=== PATIENT | male | born 1995 | race Caucasian/White ===

== ENCOUNTER 2024-02-10 20:57 | Emergency (ER) | payer BC, SELFPAY ==
[2024-02-10 21:06] VITALS: BP 108/70
--- NOTE | 2024-02-10 22:30 | ED.MUSCINJ ---
HPI-Injury
General
Chief Complaint: Musculo-Skeletal Complaint
Source: patient
Exam Limitations: none
Time Seen by Provider: 02/10/24 22:20
History of Present Illness-Injury
Is this injury a work related problem?: No
Is pt an associate of [facility]/[place]?: No
Initial Injury comments:
This is a 28 year old male that comes in with c/o right ankle pain. States that he was playing Hockey and he went feet first into the boards. States that he has pain in the ankle and he was unable to bare weight. Denies any LOC.. Denies any fever,
chills, nausea, vomiting, diarrhea, headache, dizziness.
Past History
Past History
ED Past Medical History: None
ED Past Surgical History: None
Social History
Tobacco: Former smoker
Alcohol: Occasional
Personal: Single
Living: with family
Employment: Student
Review of Systems
Review of Systems
All Other Systems: ROS reviewed and negative except as documented in HPI and ROS
Constitutional: Reports no symptoms; Denies fever or chills
EENT: Reports no symptoms
Respiratory: Reports no symptoms
Cardiac: Reports no symptoms
ABD/GI: Reports no symptoms; Denies abdominal pain, nausea, vomiting or diarrhea
: Reports no symptoms
Musculoskeletal: Reports joint pain (Right ankle pain)
Skin: Reports no symptoms
Neurological: Reports no symptoms; Denies dizzy or headache
Psychiatric: Reports no symptoms
Musculoskeletal Injury Exam
Musculoskeletal Injury Exam
Right Medial Ankle:
Pain with Movement?: Mild
Tender to palpation?: Mild
Soft tissue swelling?: Mild
External deformity and angulation?: None
Joint effusion?: None
Contusion?: None
Hematoma-local bleeding into tissue?: None
Strain- Sprain- Tear (Connective tissue injury)?: None
Crepitus with movement?: No
Joint instability?: No
Malalignment/deformity?: No
Range of motion: Limited (Due to pain)
Distal skin color and temperature: normal-warm & good color
Capillary Refill: normal
Normal distal neurovascular exam?: Yes
Phy Exam
General Physical Exam
General Presentation: well appearing and no apparent distress
General age: appears stated age
General Skin: warm and dry
General Habitus: normal
General Mental: alert
General Hydration: appears well hydrated
Eye Exam
Eye Exam: EOMI
Musculoskeletal Exam
Musculoskeletal Exam: other (Limited movement right ankle with planter and dorsal flexion. Tender to palpation medial aspect of right ankle. Slight Swelling noted. )
Skin Exam
Skin Exam: normal color, warm/dry, no rash and no petechia
Psychiatric Exam
Psychiatric Exam: normal mood/affect
Injury Course
Orders/Labs/Results
Orders:
Orders
02/10/24 21:09
Ankle, Right 3 view CR [CR Ankle - Right Min 3 Views *] Urgent
Comment:
Reason For Exam: HIT THE BOARDS FEET FIRST DURING ICE HOCKEY
02/10/24 22:31
Crutches-Treatment ONCE
Ortho Boot Right- Treatment ONCE
Short or tall?: Tall
Ibuprofen [Motrin] 600 mg PO NOW STA
MDM/Problems Addressed
Differential Diagnosis Includes:
Ankle Fracture,
MDM/Problems Addressed:
This is a 28 year old male that comes in with c/o right ankle pain after going feet first into the boards.
Will get X-ray.
Explained to patient that he has a tibial fracture. Will place patient in a cast boat and have him use Crutches. No weight baring until he see's the control specialist. Patient to use Tylenol and Ibuprofen for pain. Rest, ice and elevated. Return
with any concerns.
Chronic conditions affecting care:
NA
Acute Exacerbation and/or Progression of Chronic Illness:
NA
*Radiology
Radiology exam reviewed: radiology read reviewed (Right ankle- Nondisplaced vertical fracture through the posterior distal articular margin of the right tibia. )
*Pulse Oximetry
Patient hypoxic: no
*EKG
Interpreted by ED Provider?: NA
Rate: EKG- N/A
*Sales Development Consultant Interpretation
Rate: Sales Development Consultant- N/A
*Critical Care Note
Total Time (30-74mins, 75-104mins- exclusive of procedures): Not Applicable
ED Attending Note
-
Portions of this chart may have been created with voice recognition software.� Occasional wrong word or��sound alike� substitutions may have occurred due to the inherent limitations of voice recognition software.
Discharge Plan
Departure
Patient Disposition: Home (Routine Discharge)
Date of Disposition: 02/10/24
Time of Disposition: 22:38
Patient with high blood pressure during this ER visit?: No
Condition: Good
Covid-19: Not Applicable
Discharge Problem:
Closed tibia fracture
Instructions: Ankle Fracture ED, How to use crutches, RICE Therapy
Prescriptions:
No Action
cephalexin 500 MG capsule
500 mg PO BID Qty: 20 0RF
Referrals:
Jcarlos Oliva MD [Active] - Follow up in 2-3 days
Activity Restrictions/Additional Instructions:
As discussed, you have a posterior tibial fracture. Please use the cast boat until you are seen by the control specialist. Please call there office tomorrow to make an appointment. You may remove the boat to sleep and elevate your foot on a
pillow. Please no weight baring until seen by the Orthopedic. You may use Tylenol and alternate with Ibuprofen for pain. Rest, ice and elevate. IF YOU HAVE ANY OTHER CONCERNS PLEASE RETURN TO THE EMERGENCY ROOM.
Interventions
Interventions:
*Risk Screen - Suicide Last Done: 02/10/24 21:06
*Neglect/Abuse Screening Last Done: 02/10/24 21:06
Discharge Date and Time
Print Language: [id number]
[2024-02-10 22:59] VITALS: BP 126/87
== END 2024-02-10 23:05 | disposition home or self-care (01) ==
LOC: EMR 20:57
PROVIDERS: EMERGENCY PHYSICIAN Emergency Medicine
DX: S82.201A Unspecified fracture of shaft of right tibia, initial encounter for closed fracture (principal); X58.XXXA Exposure to other specified factors, initial encounter; Y93.22 Activity, ice hockey; Z87.891 Personal history of nicotine dependence
CPT/HCPCS: 99283; 73610

== ENCOUNTER → 2024-02-22 06:56 | Outpatient (REF) | payer BC, SELFPAY | LOC: RAD 06:56 | PROVIDERS: ATTENDING PHYSICIAN Physician Assistant Surgical | DX: S82.54XA Nondisplaced fracture of medial malleolus of right tibia, initial encounter for closed fracture (principal) | CPT/HCPCS: 73700 ==